=== PATIENT | female | born 1985 | race Caucasian/White ===

== ENCOUNTER 2018-11-25 17:43 | Outpatient (CLI) | payer OTHER ==
[~2018-11-25] VITALS: Ht 157.5 cm; Wt 106.0 kg
[~2018-11-25 17:43] MED LIST: ASPI-805 PO; METH10TA5 PO; PREN-19 PO
[2018-11-25] MEDS ORDERED: ACETAMINOPHEN 500 MG TAB PO STA (20:47)
[2018-11-25 21:11] VITALS: BP 123/65; PULSE 93; RESP 16
[2018-11-25 21:13] VITALS: PULSE 93
--- NOTE | 2018-11-25 22:32 | PN ---
Triage Information Date/Time November 25, 2018 Reason for visit: Abd/pelvic pain Weeks of Gestation 26w 2d /Para 2/1 Diabetes: none Hypertention: none Additional information Pt has had a headache x 2 days . She commutes 4 hours/day for work and sits all day at work and has vaginal pain associated with that. PMHx: Hypothyroidism. PSHx: x 1. NKDA. Objective Vital Signs Date Temp Pulse Resp B/P (MAP) Pulse Ox O2 O2 Flow FiO2 Time Delivery Rate 11/25/18 98.3 93 21:13 11/25/18 16 123/65 Room Air 21:11 (84) Heart Rate: 150's Heart Rate Comments The baby is moving so much it is very difficult to keep the baby on the monitor. Contractions: None Results/Medications Results 24 hrs Laboratory Tests Test 11/25/18 20:00 Urine Color YELLOW Urine Clarity CLEAR Urine pH 6.0 Urine Specific [place] 1.013 Urine Ketones NEGATIVE Urine Nitrite NEGATIVE Urine Bilirubin NEGATIVE Urine Urobilinogen NEGATIVE Urine Leukocyte Esterase NEGATIVE Urine Hemoglobin NEGATIVE Urine Glucose NEGATIVE Urine Total Protein NEGATIVE Imaging Results BPP 8/8 with a MVP of 7.6 cm. CX 5.2 cm and closed. Disposition: Discharge Assessment/Plan A: IUP at 26w 2d. Pelvic pain. Headache. P: Tylenol given and with p.o. hydration the pt was feeling much better. D/C home. The pt will be getting a transfer to a worksite that is 20 minutes from home, instead of 2 hours, in the next 2 weeks. RANDALL CROSS MD Nov 25, 2018 22:32
--- NOTE | 2018-11-26 08:58 | TRIAGE ---
OB Triage Datetime Report Generated by CPN: 11/26/2018 08:58 Datetime: 11/25/2018 20:05 EGA: 26.2 Datetime: 11/25/2018 20:00 Time of Arrival: 11/25/2018 17:34 Arrived By: Wheelchair Arrived From: Home Chief Complaint: hx c/s x1 c/o [place] since Sunday and vag pain when sitting long periods like c ommute and work Movement: Present Contractions: Denies/Absent Rupture of Membranes: Denies Vaginal Bleeding: None Vaginal Discharge: Denies Recent Sexual Intercouse: Denies Abdominal Trauma: Not Applicable Patient Complaints: Headache; Other Time Provider Notified: 11/25/2018 20:30 Provider Notified: Dr Bailey Initial Plan: UA,CVL,EFW,BPP,PO HYDRATION, TYLENOL
== END 2018-11-25 22:23 | disposition home or self-care (01) ==
LOC: OBT 17:43 → L-D 17:45 → OBT 22:23
PROVIDERS: ATTEND Obstetrics & Gynecology
DX: O26.892 Other specified pregnancy related conditions, second trimester (principal); R10.2 Pelvic and perineal pain; Z3A.26 26 weeks gestation of pregnancy
CPT/HCPCS: 76815; 76817; 76818; 81003; G0463

== ENCOUNTER 2019-02-07 11:50 | Outpatient (CLI) | payer OTHER ==
[~2019-02-07] VITALS: Ht 157.5 cm; Wt 113.5 kg
[~2019-02-07 11:50] MED LIST changes: -ASPI-805 PO
[2019-02-07 11:57] VITALS: Ht 157.5 cm; Wt 113.5 kg
[2019-02-07 11:58] VITALS: BP 122/60; PULSE 104; RESP 18
== END 2019-02-07 14:12 | disposition home or self-care (01) ==
LOC: OBT 11:50 → L-D 11:50 → OBT 14:12
PROVIDERS: ATTEND Obstetrics & Gynecology
DX: O16.3 Unspecified maternal hypertension, third trimester (principal); Z3A.36 36 weeks gestation of pregnancy
CPT/HCPCS: 76818; G0463